=== PATIENT | female | born 1930 | race Caucasian/White ===

== ENCOUNTER 2017-12-13 09:05 | Emergency (ER) | payer MEDICARE, MEDICAID ==
[~2017-12-13 09:05] MED LIST: Sodium Chloride 0.9% 100 ML BAG ONE
--- NOTE | 2017-12-13 09:25 | RAD ---
SINGLE VIEW OF THE CHEST: Comparison: 07-19-15 History: Dyspnea. FINDINGS: Single view of the chest shows an enlarged but stable cardiomediastinal silhouette. Increased interst itial markings are present. There is blunting of both costophrenic angles which may represent pleural effusions and adjacent atelectasis. IMPRESSION: 1. Cardiomegaly. 2. Small bilateral pleural effusions with adjacent atelectasis versus infiltrate. POS: [facility]
[2017-12-13 10:15] LABS: ALT (SGPT) 61 U/L (8-55); AST (SGOT) 78 U/L (5-34); Albumin 2.8 g/dL (3.4-4.8); Alkaline Phosphatase 108 U/L (40-150); Anion Gap 21 mmol/L (10-20); BUN (Urea Nitrogen) 43 mg/dL (9.8-20.1); Bilirubin, Total 0.8 mg/dL (0.2-1.2); CK (CPK) 18 U/L (29-168); Calc. Creatinine Clearance 0 mL/min (70-130); Calcium 8.5 mg/dL (7.8-10.44); Carbon Dioxide 17 mmol/L (23-31); Chloride 102 mmol/L (98-107); Estimated GFR-MDRD 20; Globulin 3.5 g/dL (2.4-3.5); Glucose 154 mg/dL (83-110); Potassium 4.2 mmol/L (3.5-5.1); Protein, Total 6.3 g/dL (6.0-8.3); Sodium 136 mmol/L (136-145)
[2017-12-13 10:18] LABS: CKMB 2.4 ng/mL (0-6.6)
[2017-12-13] MEDS ORDERED: Furosemide 40 MG/4 ML VIAL ONE (10:25)
[2017-12-13 10:28] LABS: Hemoglobin 11.5 g/dL (12.0-16.0); Mean Corpuscular HGB CONC 32.4 g/dL (32.0-36.0); Mean Corpuscular Hemoglobin 29.9 pg (27.0-31.0); Mean Corpuscular Volume 92.3 fl (81.0-99.0); Platelet Count 368 thou/uL (130-400); RBC Distribution Width 13.3 % (11.5-14.5); Red Blood Cell (RBC) Count 3.84 mill/uL (4.20-5.40); White Blood Cell (WBC) Count 20.4 thou/uL (4.8-10.8)
[2017-12-13 10:34] LABS: Manual Diff?? YES
[2017-12-13 10:35] LABS: Band 2 % (5-11); Lymphocytes 7 % (21-51); MDiff Complete? YES; Monocytes 4 % (0-10); Neutrophil 87 % (42-75)
[2017-12-13 10:36] LABS: Troponin I 0.416 ng/mL (< 0.028)
[2017-12-13] MEDS ORDERED: cefTRIAXone\\ROCEPHIN 2 GM VIAL ONE (10:38)
[2017-12-13] MEDS ORDERED: Azithromycin 500 MG VIAL ONE (10:38)
[2017-12-13] MEDS ORDERED: Enoxaparin Sodium 80 MG/0.8 ML SYRINGE ONE (10:52)
== END 2017-12-13 11:30 | disposition short-term general hospital (02) ==
LOC: MADERS 09:05
DX: I11.0 Hypertensive heart disease with heart failure (principal); I50.9 Heart failure, unspecified; E03.9 Hypothyroidism, unspecified; E78.5 Hyperlipidemia, unspecified; F41.9 Anxiety disorder, unspecified; F32.9 Major depressive disorder, single episode, unspecified
CPT/HCPCS: 71045; 80053; 82550; 82553; 83605; 83880; 84484; 85025; 87040; 93005; 94640; 94760; 96365; 96372; 96375; J0456; J0696; J1650; J1940; J7050; J7620

== ENCOUNTER 2020-03-13 15:59 | Emergency (ER) | payer MEDICARE, MEDICAID ==
--- NOTE | 2020-03-13 17:44 | CT ---
Head CT without contrast 03/13/2020: COMPARISON: None HISTORY: Trauma TECHNIQUE: Axial CT imaging at 5 mm intervals from vertex through skull base without contrast. Gandhi l and sagittal reformatted imaging obtained. FINDINGS: The imaged paranasal sinuses and mastoid air cells are well aerated. No displaced calvarial fracture is seen. There is moderate diffuse cerebral volume loss with associated prominence of the CSF containing spaces. Periventricular and deep white matter hypodensity noted, evidence of small ves bonny disease. No intracranial hemorrhage, midline shift, or mass effect. There is soft tissue swelling in the left periorbital region. IMPRESSION: Left periorbital soft tissue swelling with no calvarial fracture or intracranial hemorrha ge seen.
--- NOTE | 2020-03-13 17:47 | CT ---
CT of thefacial bones: 03/13/2020 COMPARISON:None available HISTORY:Injury, trauma, pain TECHNIQUE: Serial axial CT imaging at2.5 mm intervals from thesupraorbital region through hyoid bone without contrast. Coronal and sagittal reformatted imaging obtained. Findings:There is soft tissue swelling in the left periorbital region with minimal subcutaneous gas a nterior to the superior aspect of the left orbit which may represent a small laceration. The nasal bones, zygomatic arches, and pterygoid plates appear intact. There are degenerative changes involving the temporomandibular joints, right greater than left. No ma ndibular or maxillary fracture is noted. The coronal reformatted imaging demonstrates no evidence for a fracture of the orbital floor or medial orbital wall on either side. Impression:Left periorbital soft tissue swelling with no associated facial bone fracture.
[2020-03-13] MEDS ORDERED: Adacel (T-DAP) 0.5 ML SYRINGE ONE (18:26)
== END 2020-03-13 18:34 | disposition home or self-care (01) ==
LOC: MADERS 15:59
DX: S51.812A Laceration without foreign body of left forearm, initial encounter (principal); S00.12XA Contusion of left eyelid and periocular area, initial encounter; E03.9 Hypothyroidism, unspecified; K21.9 Gastro-esophageal reflux disease without esophagitis; E78.5 Hyperlipidemia, unspecified; F41.9 Anxiety disorder, unspecified; Z79.899 Other long term (current) drug therapy; X58.XXXA Exposure to other specified factors, initial encounter
CPT/HCPCS: 70450; 70486; 90471; 90715